=== PATIENT | male | born 1980 | race Caucasian/White ===

== ENCOUNTER 2016-09-11 15:38 | Emergency (ER) | payer BC ==
[~2016-09-11] VITALS: Ht 165.1 cm; Wt 56.8 kg
[~2016-09-11 15:38] MED LIST: CLINDAMYCIN HC300 MG PO; DAILY VITAMIN1 TAB PO; FLEXERIL 1010 MG/TAB PO; FLEXERIL10 MG PO; LEXAPRO20 MG PO; NORCO 325 MG-101 TAB PO; NORCO 325 MG-51 TAB PO; ROBAXIN 75750 MG/TAB PO; VALIUM 5MG T5 MG/TAB PO; VOLTAREN 75 DR75 MG PO
[2016-09-11 15:40] VITALS: TEMP 98.1
[2016-09-11 16:43] LABS: BASO # 0.1 (0.0-0.2); BASO % 0.5 % (0.0-2.0); EOS # 0.2 (0.0-0.7); EOS % 2.1 % (0-4.0); GRAN # 7.4 (1.4-6.5); GRAN % 67.8 % (42.2-75.2); HEMOGLOBIN 14.3 g/dl (13.5-18.0); LYMPH # 2.6 (1.2-3.4); LYMPH % 23.5 % (20.0-51.0); MEAN CELL VOLUME 92 fl (80.0-100.0); MEAN CORPUSCULAR HEMOGLOBIN 32 pg (27.0-31.0); MEAN CORPUSCULAR HGB CONC 35 g/dl (33.0-37.0); MEAN PLATELET VOLUME 13.5 fl (7.4-10.4); MONO # 0.6 (0.1-0.6); MONO % 5.8 % (1.7-9.3); PLATELET COUNT 120 K/mm3 (130-400); RED BLOOD COUNT 4.46 M/mm3 (4.20-5.60); REDCELL DISTRIBUTION WIDTH-CV 11.9 % (11.5-14.5); WHITE BLOOD COUNT 10.9 K/mm3 (4.8-10.8)
[2016-09-11 16:52] LABS: ADJUSTED CALCIUM 9.2 mg/dL (8.4-10.2); ALBUMIN 4.5 gm/dL (3.5-5.0); CALCIUM 9.6 mg/dL (8.4-10.2); CREATININE, serum 0.77 mg/dL (0.66-1.25); POTASSIUM 3.5 mmol/L (3.4-5.0); TOTAL PROTEIN 6.9 gm/dL (6.4-8.2)
[2016-09-11 17:21] VITALS: BP 112/84; PULSE 68
== END 2016-09-11 18:10 | disposition home or self-care (01) ==
LOC: COL.ER 15:38
PROVIDERS: Emergency Medicine
DX: R42 Dizziness and giddiness (principal)

== ENCOUNTER 2017-11-29 19:10 | Emergency (ER) | payer BC ==
[~2017-11-29] VITALS: Ht 167.6 cm; Wt 54.5 kg
[2017-11-29 19:13] VITALS: TEMP 99
[2017-11-29 19:53] LABS: BASO # 0.1 (0.0-0.2); BASO % 0.7 % (0.0-2.0); EOS # 0.6 (0.0-0.7); EOS % 5.4 % (0-4.0); GRAN # 6.5 (1.4-6.5); GRAN % 55.8 % (42.2-75.2); HEMATOCRIT 40.5 % (42.0-52.0); HEMOGLOBIN 13.7 g/dl (13.5-18.0); LYMPH # 3.5 (1.2-3.4); LYMPH % 29.8 % (20.0-51.0); MEAN CELL VOLUME 92 fl (80.0-100.0); MEAN CORPUSCULAR HEMOGLOBIN 31 pg (27.0-31.0); MEAN CORPUSCULAR HGB CONC 34 g/dl (33.0-37.0); MEAN PLATELET VOLUME 12.4 fl (7.4-10.4); MONO # 0.9 (0.1-0.6); PLATELET COUNT 171 K/mm3 (130-400); RED BLOOD COUNT 4.39 M/mm3 (4.20-5.60); REDCELL DISTRIBUTION WIDTH-CV 13.3 % (11.5-14.5)
[2017-11-29 20:21] LABS: BILIRUBIN,TOTAL 0.5 mg/dL (0.0-1.0); C-REACTIVE PROTEIN 0.5 mg/dL (0.0-0.9); CREATININE, serum 0.87 mg/dL (0.66-1.25)
[2017-11-29 20:51] LABS: COLLECTION METHOD CLEAN CATCH
[2017-11-29 20:56] LABS: MUCOUS Present /lpf; PH 5 (5-8); SQUAMOUS EPITHELIAL None Seen /hpf; URINE APPEARANCE Clear; URINE BACTERIA None Seen /hpf; URINE BILIRUBIN Negative (NEGATIVE); URINE BLOOD Negative (NEGATIVE); URINE COLOR Amber; URINE GLUCOSE Negative (NEGATIVE); URINE KETONE Negative (NEGATIVE); URINE LEUKOCYTE ESTERASE Negative (NEGATIVE); URINE NITRATE Positive (NEGATIVE); URINE PROTEIN(semi-quant) Negative (NEGATIVE); URINE RBC 0-2 /hpf; URINE UROBILINOGEN >=4.0 mg/dL (NEGATIVE)
[2017-11-29 21:28] VITALS: BP 113/62; PULSE 68
== END 2017-11-29 21:37 | disposition home or self-care (01) ==
LOC: COL.ER 19:10
PROVIDERS: Emergency Medicine
DX: N23 Unspecified renal colic (principal); K59.00 Constipation, unspecified; F17.210 Nicotine dependence, cigarettes, uncomplicated; G89.29 Other chronic pain; Z87.442 Personal history of urinary calculi
CPT/HCPCS: J2405; J7030; Q9967

== ENCOUNTER 2018-03-09 15:59 | Emergency (ER) | payer BC ==
[~2018-03-09] VITALS: Ht 167.6 cm; Wt 64.5 kg
[2018-03-09 16:12] VITALS: BP 131/90; TEMP 98.7
[2018-03-09] MEDS ORDERED: VALIUM 10MG10 MG/TAB PO (16:21)
[2018-03-09] MEDS ORDERED: CYMBALTA 60MG60 MG PO (16:21)
[2018-03-09] MEDS ORDERED: SUBOXONE 8 MG-21 TAB SL (16:22)
[2018-03-09 17:14] VITALS: PULSE 88
== END 2018-03-09 17:15 | disposition home or self-care (01) ==
LOC: COL.ER 15:59
DX: S62.630A Displaced fracture of distal phalanx of right index finger, initial encounter for closed fracture (principal); F31.9 Bipolar disorder, unspecified; F17.210 Nicotine dependence, cigarettes, uncomplicated; Z98.890 Other specified postprocedural states; Z23 Encounter for immunization; W22.8XXA Striking against or struck by other objects, initial encounter

== ENCOUNTER 2018-06-18 12:14 | Emergency (ER) | payer BC ==
[~2018-06-18] VITALS: Ht 170.2 cm; Wt 63.6 kg
[~2018-06-18 12:14] MED LIST changes: +CYMBALTA 60MG60 MG PO; +SUBOXONE 8 MG-21 TAB SL; +VALIUM 10MG10 MG/TAB PO
[2018-06-18 12:24] VITALS: TEMP 99.4
[2018-06-18 13:31] LABS: BASO # 0.1 (0.0-0.2); BASO % 0.7 % (0.0-2.0); EOS # 0.1 (0.0-0.7); EOS % 0.7 % (0-4.0); GRAN # 8.5 (1.4-6.5); GRAN % 70.7 % (42.2-75.2); HEMATOCRIT 41.1 % (42.0-52.0); HEMOGLOBIN 14.5 g/dl (13.5-18.0); LYMPH # 2.6 (1.2-3.4); LYMPH % 21.2 % (20.0-51.0); MEAN CELL VOLUME 90 fl (80.0-100.0); MEAN CORPUSCULAR HEMOGLOBIN 32 pg (27.0-31.0); MEAN CORPUSCULAR HGB CONC 35 g/dl (33.0-37.0); MEAN PLATELET VOLUME 12.4 fl (7.4-10.4); MONO # 0.8 (0.1-0.6); MONO % 6.2 % (1.7-9.3); PLATELET COUNT 171 K/mm3 (130-400); RED BLOOD COUNT 4.57 M/mm3 (4.20-5.60); REDCELL DISTRIBUTION WIDTH-CV 12.5 % (11.5-14.5)
[2018-06-18 13:35] LABS: COLLECTION METHOD CLEAN CATCH
[2018-06-18 13:40] LABS: ALBUMIN 4.4 gm/dL (3.5-5.0); BILIRUBIN,TOTAL 0.6 mg/dL (0.0-1.0); CALCIUM 9.5 mg/dL (8.4-10.2); CREATININE, serum 0.8 mg/dL (0.66-1.25); MUCOUS Present /lpf; PH 7 (5-8); POTASSIUM 4.1 mmol/L (3.4-5.0); SQUAMOUS EPITHELIAL None Seen /hpf; TOTAL PROTEIN 7.3 gm/dL (6.4-8.2); URINE APPEARANCE Clear; URINE BACTERIA None Seen /hpf; URINE BILIRUBIN Negative (NEGATIVE); URINE BLOOD Negative (NEGATIVE); URINE COLOR Yellow; URINE GLUCOSE Negative (NEGATIVE); URINE KETONE Negative (NEGATIVE); URINE LEUKOCYTE ESTERASE Negative (NEGATIVE); URINE NITRATE Negative (NEGATIVE); URINE PROTEIN(semi-quant) 1+ (NEGATIVE); URINE RBC 0-2 /hpf; URINE UROBILINOGEN Negative (NEGATIVE)
[2018-06-18] MEDS ORDERED: ZOFRAN ODT4 MG PO (15:29)
[2018-06-18] MEDS ORDERED: PHENERGAN 25 TA25 MG PO (15:29)
[2018-06-18 16:34] VITALS: BP 111/78; PULSE 77
== END 2018-06-18 16:38 | disposition home or self-care (01) ==
LOC: COL.ER 12:14
PROVIDERS: Emergency Medicine
DX: R19.7 Diarrhea, unspecified (principal); R10.9 Unspecified abdominal pain; F17.210 Nicotine dependence, cigarettes, uncomplicated
CPT/HCPCS: C9113; J2270; J2405; J2550; J7030; Q9967

== ENCOUNTER 2018-07-02 21:17 | Emergency (ER) | payer BC ==
[~2018-07-02] VITALS: Ht 167.6 cm; Wt 65.9 kg
[~2018-07-02 21:17] MED LIST changes: +PHENERGAN 25 TA25 MG PO; +ZOFRAN ODT4 MG PO
[2018-07-02 21:21] VITALS: TEMP 99.1
[2018-07-02 21:55] LABS: BASO # 0.1 (0.0-0.2); BASO % 0.8 % (0.0-2.0); EOS # 0.3 (0.0-0.7); EOS % 2.2 % (0-4.0); GRAN # 6.4 (1.4-6.5); GRAN % 55.8 % (42.2-75.2); HEMOGLOBIN 15.3 g/dl (13.5-18.0); LYMPH # 3.8 (1.2-3.4); MEAN CELL VOLUME 92 fl (80.0-100.0); MEAN CORPUSCULAR HEMOGLOBIN 33 pg (27.0-31.0); MEAN CORPUSCULAR HGB CONC 36 g/dl (33.0-37.0); MEAN PLATELET VOLUME 12.1 fl (7.4-10.4); MONO # 0.9 (0.1-0.6); MONO % 7.6 % (1.7-9.3); PLATELET COUNT 152 K/mm3 (130-400); REDCELL DISTRIBUTION WIDTH-CV 13.3 % (11.5-14.5)
[2018-07-02 22:09] LABS: ALANINE AMINOTRANSFERASE 29 U/L (21-72); ALBUMIN 4.3 gm/dL (3.5-5.0); ALKALINE PHOSPHATASE 94 U/L (50-136); ANION GAP 10 mmol/L (7-16); AST,SGOT 32 U/L (15-37); BILIRUBIN,TOTAL 0.6 mg/dL (0.0-1.0); BLOOD UREA NITROGEN 17 mg/dL (9-20); C-REACTIVE PROTEIN < 0.5 mg/dL (0.0-0.9); CALCIUM 9.5 mg/dL (8.4-10.2); CARBON DIOXIDE 24 mmol/L (22-30); CHLORIDE 102 mmol/L (98-107); CREATININE, serum 0.89 mg/dL (0.66-1.25); GLUCOSE 89 mg/dL (74-106); LIPASE 46 U/L (23-300); POTASSIUM 4.4 mmol/L (3.4-5.0); SODIUM 136 mmol/L (137-145); TOTAL PROTEIN 7.4 gm/dL (6.4-8.2)
[2018-07-02 22:44] LABS: COLLECTION METHOD CLEAN CATCH
[2018-07-02 22:49] LABS: PH 6 (5-8); SQUAMOUS EPITHELIAL None Seen /hpf; URINE APPEARANCE Clear; URINE BACTERIA None Seen /hpf; URINE BILIRUBIN Negative (NEGATIVE); URINE BLOOD Negative (NEGATIVE); URINE COLOR Yellow; URINE GLUCOSE Negative (NEGATIVE); URINE KETONE Trace (NEGATIVE); URINE LEUKOCYTE ESTERASE Negative (NEGATIVE); URINE NITRATE Negative (NEGATIVE); URINE PROTEIN(semi-quant) Negative (NEGATIVE); URINE RBC None Seen /hpf; URINE UROBILINOGEN Negative (NEGATIVE)
[2018-07-02] MEDS ORDERED: FLAGYL500 MG PO (23:54)
[2018-07-02] MEDS ORDERED: CIPRO 500MG TA500 MG PO (23:54)
[2018-07-03 00:15] VITALS: BP 136/82; PULSE 82
== END 2018-07-03 00:16 | disposition home or self-care (01) ==
LOC: COL.ER 21:17
PROVIDERS: Emergency Medicine
DX: R19.7 Diarrhea, unspecified (principal); R11.10 Vomiting, unspecified; R10.9 Unspecified abdominal pain; F17.210 Nicotine dependence, cigarettes, uncomplicated
CPT/HCPCS: J2405; J3010; J7030; Q9967

== ENCOUNTER → 2020-02-21 | Outpatient (CLI) | payer OTHER ==
[~2020-02-21] MED LIST changes: +CIPRO 500MG TA500 MG PO; +FLAGYL500 MG PO
[2020-02-21 16:49] LABS: BASO # 0.1 (0.0-0.2); BASO % 0.8 % (0.0-2.0); EOS # 0.3 (0.0-0.7); EOS % 3.5 % (0-4.0); GRAN % 54.6 % (42.2-75.2); HEMATOCRIT 40.6 % (42.0-52.0); HEMOGLOBIN 14.2 g/dl (13.5-18.0); LYMPH # 3.1 (1.2-3.4); LYMPH % 33.7 % (20.0-51.0); MEAN CELL VOLUME 93 fl (80.0-100.0); MEAN CORPUSCULAR HEMOGLOBIN 32 pg (27.0-31.0); MEAN CORPUSCULAR HGB CONC 35 g/dl (33.0-37.0); MEAN PLATELET VOLUME 12.6 fl (7.4-10.4); MONO # 0.7 (0.1-0.6); MONO % 7.2 % (1.7-9.3); PLATELET COUNT 141 K/mm3 (130-400); RED BLOOD COUNT 4.38 M/mm3 (4.20-5.60); REDCELL DISTRIBUTION WIDTH-CV 11.9 % (11.5-14.5)
[2020-02-21 17:05] LABS: ALANINE AMINOTRANSFERASE 18 U/L (4-49); ALBUMIN 4.5 gm/dL (3.5-5.0); ALKALINE PHOSPHATASE 75 U/L (50-136); ANION GAP 8 mmol/L (7-16); AST,SGOT 25 U/L (15-37); BILIRUBIN,TOTAL 0.8 mg/dL (0.0-1.0); BLOOD UREA NITROGEN 12 mg/dL (9-20); CALCIUM 9.8 mg/dL (8.4-10.2); CARBON DIOXIDE 23 mmol/L (22-30); CHLORIDE 107 mmol/L (98-107); CREATININE, serum 0.87 (0.66-1.25); GLUCOSE 96 mg/dL (74-106); MAGNESIUM 1.9 mg/dL (1.6-2.3); POTASSIUM 4.3 mmol/L (3.4-5.0); SODIUM 138 mmol/L (137-145); TOTAL PROTEIN 7.4 gm/dL (6.4-8.2)
[2020-02-21 17:28] LABS: TROPONIN-I < 0.012 ng/mL (0.000-0.035)
== END ==
LOC: COL.LAB
PROVIDERS: Family Medicine
DX: R00.2 Palpitations (principal)

== ENCOUNTER → 2020-03-05 | Outpatient (CLI) | payer OTHER | LOC: COL.CARD 02-28 08:00 | DX: R00.2 Palpitations (principal) ==

== ENCOUNTER 2023-07-20 10:25 | Emergency (ER) | payer OTHER ==
[~2023-07-20] VITALS: Ht 170.2 cm; Wt 77.3 kg
[2023-07-20 10:39] VITALS: TEMP 98.4
[2023-07-20] MEDS ORDERED: NS 1,000 ML IV ONE (11:15)
[2023-07-20] MEDS ORDERED: LORazepam 2 MG/ML 1 ML VIAL IV ONE ×2 (11:15→12:45)
[2023-07-20] MEDS ORDERED: Pantoprazole 40 MG in NS 10 ML IV ONE (11:15)
[2023-07-20 11:38] LABS: BASO # 0.1 K/mm3 (0.0-0.2); BASO % 1.1 % (0.0-2.0); EOS # 0.2 K/mm3 (0.0-0.7); EOS % 1.6 % (0.0-4.0); GRAN # 7.6 K/mm3 (1.4-6.5); GRAN % 65.8 % (42.2-75.2); HEMATOCRIT 45.2 % (42.0-52.0); LYMPH # 2.9 K/mm3 (1.2-3.4); LYMPH % 24.8 % (20.0-51.0); MEAN CELL VOLUME 92 fl (80.0-100.0); MEAN CORPUSCULAR HEMOGLOBIN 33 pg (27-31); MEAN CORPUSCULAR HGB CONC 35 g/dl (33.0-37.0); MEAN PLATELET VOLUME 11.8 fl (7.4-10.4); MONO # 0.7 K/mm3 (0.1-0.6); PLATELET COUNT 242 K/mm3 (130-400); RED BLOOD COUNT 4.93 M/mm3 (4.20-5.60)
[2023-07-20 12:08] LABS: ACETAMINOPHEN < 7.0 ug/mL (10-30); ALANINE AMINOTRANSFERASE 38 U/L (0-55); ALBUMIN 4.4 gm/dL (3.5-5.0); ALCOHOL(ethanol),MEDICAL 39 mg/dL (0-10); ALKALINE PHOSPHATASE 110 U/L (40-150); ANION GAP 14 mmol/L (7-16); AST,SGOT 26 U/L (5-34); BILIRUBIN,TOTAL 0.5 mg/dL (0.2-1.2); BLOOD UREA NITROGEN 7 mg/dL (9-21); CALCIUM 10.3 mg/dL (8.4-10.2); CARBON DIOXIDE 25 mmol/L (22-29); CHLORIDE 102 mmol/L (98-107); CREATININE, serum 0.99 mg/dL (0.72-1.25); GLUCOSE 103 mg/dL (70-99); LIPASE 15 U/L (8-78); SODIUM 141 mmol/L (136-145); TOTAL PROTEIN 8.2 gm/dL (6.2-8.1)
[2023-07-20 13:05] LABS: COLLECTION METHOD CLEAN CATCH
[2023-07-20 13:10] LABS: URINE APPEARANCE CLEAR (CLEAR/HAZY); URINE BLOOD NEGATIVE (NEGATIVE); URINE COLOR YELLOW (YELLOW); URINE GLUCOSE NEGATIVE (NEGATIVE); URINE KETONE NEGATIVE (NEGATIVE); URINE NITRATE NEGATIVE (NEGATIVE); URINE PROTEIN(semi-quant) NEGATIVE (NEGATIVE); URINE UROBILINOGEN 0.2 E.U/dL (0.2-1.0)
[2023-07-20 13:24] LABS: TRICYCLIC ANTIDEPRESS URINE NEGATIVE (NEGATIVE)
[2023-07-20 15:04] VITALS: BP 147/101; PULSE 93
== END 2023-07-20 15:04 | disposition home or self-care (01) ==
LOC: COL.ER 10:25
PROVIDERS: Emergency Medicine
DX: K29.71 Gastritis, unspecified, with bleeding (principal); R44.1 Visual hallucinations; F10.20 Alcohol dependence, uncomplicated; Y90.1 Blood alcohol level of 20-39 mg/100 ml; Z79.899 Other long term (current) drug therapy
CPT/HCPCS: C9113; J2060; J7030